=== PATIENT | male | born 1940 | race Caucasian/White ===

== ENCOUNTER → 2016-04-24 | Outpatient (CLI) | payer OTHER, BC | LOC: MMPC 09:00 | PROVIDERS: ATTEND Nurse Practitioner Family | DX: I26.99 Other pulmonary embolism without acute cor pulmonale (principal); Z79.01 Long term (current) use of anticoagulants | CPT/HCPCS: 99213; G0463 ==

== ENCOUNTER → 2016-07-24 | Outpatient (CLI) | payer OTHER, BC ==
--- NOTE | 2016-07-24 10:31 | DI ---
RIGHT KNEE, 07/24/2016 9:46 AM: Clinical History: Right knee pain. Previous Exam: None at this facility. 4 views are submitted. The AP and tunnel projections are weight bearing views. There is no acute soft tissue, osseous, or joint abnormality. There is fragmentation of the patella and this can either be secondary to a congenital anomaly, developmental abnormality, or post surgery/trauma. 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 T here is severe joint space narrowing in the lateral compartment with moderately severe joint space na rrowing in the medial compartment. Readin. There are degenerative changes in both the medial and lateral compartments. 2. There is fragmentation of the patella in the larger component may actually be a bipartite patella . Bony densities extend into the quadriceps tendon as well as the patellar tendon and therefore traum a or prior surgery may have contributed to this finding. LEFT KNEE, 07/24/2016 9:46 AM: Clinical History: Left knee pain. Previous Exam: 04/25/2013. 4 views are submitted. The AP and tunnel projections are weight bearing views. There is no acute soft tissue, osseous, or joint abnormality. There is moderate narrowing of the medial compartment consist ent with degenerative joint disease. There is lateral subluxation of the patella with complete oblite ration of the joint space between the lateral facet of the patella and the lateral femoral condyle. T he medial meniscus and the femoral articular cartilage are calcified indicating chondrocalcinosis. Readin. Degenerative arthritic change of the medial compartment and the patellofemoral compartment. There is lateral subluxation of the patella. 2. Chondrocalcinosis.
== END ==
LOC: ORTHO 10:05
PROVIDERS: ATTEND Orthopaedic Surgery
DX: M25.561 Pain in right knee (principal); M25.562 Pain in left knee; M17.0 Bilateral primary osteoarthritis of knee; M11.262 Other chondrocalcinosis, left knee
CPT/HCPCS: 20610; 73564; 99214; G0463; J0702

== ENCOUNTER → 2016-09-21 | Outpatient (CLI) | payer OTHER, BC | LOC: MMPC 09:00 | PROVIDERS: ATTEND Physician Assistant Medical | DX: L03.115 Cellulitis of right lower limb (principal) | CPT/HCPCS: 99213; G0463 ==

== ENCOUNTER → 2016-11-02 | Outpatient (CLI) | payer OTHER, BC | LOC: MMPC 10:00 | PROVIDERS: ATTEND Orthopaedic Surgery | DX: M17.0 Bilateral primary osteoarthritis of knee (principal); Z98.890 Other specified postprocedural states | CPT/HCPCS: 99213; G0463; J0702; J7325; 20610 ==

== ENCOUNTER → 2016-12-02 | Outpatient (CLI) | payer OTHER, BC ==
[2016-12-02 09:00] LABS: BASOPHILS # (AUTO) 0.04 10*3/UL; BASOPHILS % (AUTO) 0.7 % (0-1); EOSINOPHILS # (AUTO) 0.43 10*3/UL; EOSINOPHILS % (AUTO) 7.2 % (0-8); HEMATOCRIT 39.2 % (42.0-52.0); HEMOGLOBIN 13.6 g/dL (14.0-18.0); LYMPHOCYTES # (AUTO) 1.18 10*3/uL; MEAN CORPUSCULAR HEMOGLOBIN 29.6 PG (27-31); MEAN CORPUSCULAR HGB CONC 34.7 g/dL (33-37); MEAN CORPUSCULAR VOLUME 85.4 FL (80-90); MEAN PLATELET VOLUME 10.1 FL (7.4-12.2); MONOCYTES # (AUTO) 0.62 10*3/UL (0.3-0.8); MONOCYTES % (AUTO) 10.4 % (5-15); NEUTROPHILS # (AUTO) 3.68 10*3/UL; NEUTROPHILS % (AUTO) 61.6 % (50-80); RED BLOOD COUNT 4.59 10^6/uL (4.70-6.10)
[2016-12-02 09:04] LABS: PLATELET MORPHOLOGY COMMENT NORMAL MORPHOLOGY (NORM); RBC MORPHOLOGY COMMENT NORMAL MORPHOLOGY (NORM); WBC MORPHOLOGY COMMENT NORMAL MORPHOLOGY (NORM)
[2016-12-02 10:10] LABS: BUN/CREATININE RATIO 18.88 (6-20); CALCIUM 9.5 mg/dL (8.7-10.7); LDL CHOLESTEROL,CALCULATED 63.4 mg/dL; SERUM ALBUMIN 3.9 g/dL (3.5-4.8)
[2016-12-03 13:16] LABS: PSATOTAL 0.41 ng/mL (<=6.5)
[2016-12-03 14:07] LABS: FREE PSA/PSA RATIO SEE COMMENTS ratio (())
== END ==
LOC: LAB 08:18
PROVIDERS: ATTEND Nurse Practitioner Family
DX: I25.10 Atherosclerotic heart disease of native coronary artery without angina pectoris (principal); N40.0 Benign prostatic hyperplasia without lower urinary tract symptoms
CPT/HCPCS: 36415; 80053; 80061; 84153; 84154; 85025